=== PATIENT | male | born 1975 | race Caucasian/White ===

== ENCOUNTER 2020-06-01 21:26 | Emergency (ER) | payer BC ==
[~2020-06-01] VITALS: Ht 182.9 cm; Wt 73.5 kg
[~2020-06-01 21:26] MED LIST: FLEXERIL PO; NAPROSYN500 MG PO; NORCO 5-325 TA1 EACH PO; NORTRIPTYLINE H10 M2 PO
[2020-06-01] MEDS ORDERED: LEXAPRO20 MG PO (21:33)
[2020-06-01] MEDS ORDERED: LAMICTAL ODT50 MG PO (21:33)
[2020-06-01 22:05] LABS: ABSOLUTE BASOPHILS 0.1 thou/uL (0.0-0.2); ABSOLUTE EOSINOPHILS 0.2 thou/uL (0.0-0.7); ABSOLUTE LYMPHOCYTES 1.9 thou/uL (0.8-5.3); ABSOLUTE MONOCYTES 0.6 thou/uL (0.0-1.2); ABSOLUTE NEUTROPHILS 4.4 thou/uL (1.6-8.1); BASOPHILS 0.9 %; EOSINOPHILS 3.4 %; HEMATOCRIT 39.5 % (42.0-52.0); HEMOGLOBIN 13.9 gm/dL (14.0-18.0); LYMPHOCYTES 26.3 %; MCH 31.2 pg (26.0-34.0); MCHC 35.1 g/dL (28.0-37.0); MCV 88.9 fL (80.0-100.0); MONOCYTES 7.9 %; NUCLEATED RBCS 0 /100WBC; PLATELET COUNT* 314 thou/uL (150-400); POLYS 61.5 %; RBC 4.44 mil/uL (4.50-6.00); RDW-CV 13.7 % (10.5-14.5); WBC 7.2 thou/uL (4.0-11.0)
[2020-06-01 22:06] LABS: CALCIUM 8.7 mg/dL (8.5-10.1); CREATININE 1.1 mg/dL (0.6-1.3); POTASSIUM 3.5 mmol/L (3.5-5.1)
[2020-06-02] MEDS ORDERED: PROCTOCREAM-HC30 GM RECTAL (00:03)
[2020-06-02 00:09] VITALS: BP 120/65
== END 2020-06-02 00:10 | disposition home or self-care (01) ==
LOC: M.ERS 21:26
PROVIDERS: Emergency Medicine
DX: K64.5 Perianal venous thrombosis (principal); R19.7 Diarrhea, unspecified; R11.10 Vomiting, unspecified; Z79.899 Other long term (current) drug therapy; Z88.0 Allergy status to penicillin